=== PATIENT | female | born 1935 | race Caucasian/White ===

== ENCOUNTER 2017-10-17 06:53 | Observation (INO) | payer OTHER ==
[~2017-10-17] VITALS: Ht 154.9 cm; Wt 54.4 kg
[2017-10-17 07:23] LABS: ABSOLUTE BASOPHIL COUNT 0 /CUMM (0.0-0.2); ABSOLUTE EOSINOPHIL COUNT 0 /CUMM (0.0-0.7); ABSOLUTE GRANULOCYTE CT 6.3 /CUMM (1.4-6.5); ABSOLUTE LYMPH COUNT 1.4 /CUMM (1.2-3.4); ABSOLUTE MONOCYTE COUNT 0.7 /CUMM (0.10-0.60); BASOPHIL % 0.4 % (0.0-2.0); EOSINOPHIL % 0.5 % (0-5); GRANULOCYTE % 74.7 % (42.2-75.2); HEMATOCRIT 41.1 % (37-47); MEAN CORPUSCULAR HGB 28.8 PG (27.0-31.0); MEAN CORPUSCULAR HGB CONC 33.5 G/DL (33.0-37.0); MEAN CORPUSCULAR VOLUME 86.1 FL (81.0-99.0); MEAN PLATELET VOLUME 7.9 FL (7.4-10.4); PLATELET COUNT 275 /CUMM (130-400); RBC DISTRIBUTION WIDTH 13.4 % (11.5-14.5); RED BLOOD CELL CT 4.77 /CUMM (4.20-5.40); WHITE BLOOD CELL COUNT 8.4 /CUMM (4.8-10.8)
--- NOTE | 2017-10-17 07:25 | ED GENERAL ADULT ---
History of Present Illness General Chief Complaint: Chest Pain Stated Complaint: CP AND FLANK PAIN Source: patient Exam Limitations: no limitations Vital Signs & Intake/Output Vital Signs & Intake/Output Vital Signs Date Time Temp Pulse Resp B/P B/P Pulse O2 O2 Flow FiO2 Mean Ox Delivery Rate 10/17 1154 97.0 80 146/66 10/17 1120 97.0 84 20 145/70 94 10/17 0951 97.2 90 18 143/65 96 Room Air 10/17 0847 100 146/57 10/17 0806 97.0 103 20 131/61 96 Room Air 10/17 0719 97 Room Air Room Air 10/17 0703 92 20 182/81 100 Room Air Allergies Coded Allergies: No Known Allergies (10/17/17) Triage Note: PER PT MID ABD PAIN INTO BACK 'STRAIGHT THROUGH' TO BACK, X 1 WEEK, NOT ASSOC WITH EATING NO NVD NO SWEATING JUST IN PIT OF STOMACH Triage Nurses Notes Reviewed? yes Onset: Abrupt Duration: day(s): Timing: recent history HPI: 10/17/17 8:17 AM Patient was signed out to me by Dr. Leonard at 7 AM. She is an 82-year-old female who presents to the emergency department for epigastric discomfort and heart fluttering over the past week. She denies difficulty breathing. The onset of the symptoms was abrupt, the duration has been the past week, the severity is significant; as her symptoms required her to come to the emergency department for care. Her heart on palpation is irregularly irregular. Her initial EKG shows sinus rhythm, motion artifact. She denies any past medical history related to her heart. Past History Travel History Traveled to [place] past 21 day No Medical History Any Pertinent Medical History? see below for history Neurological: NONE EENT: NONE Cardiovascular: NONE Respiratory: NONE Gastrointestinal: BLOATING Hepatic: NONE Renal: NONE Musculoskeletal: NONE Psychiatric: NONE Endocrine: NONE Pneumonia Vaccine: 10/24/05 Surgical History Surgical History: non-contributory Psychosocial History Who do you live with Spouse Services at Home None What is your primary language [place] Tobacco Use: Never used Family History Hx Contributory? No Review of Systems Review of Systems Constitutional: Denies: fever. EENTM: Reports: no symptoms. Respiratory: Denies: short of breath. Cardiovascular: Reports: see HPI. GI: Reports: no symptoms. Genitourinary: Reports: no symptoms. Musculoskeletal: Reports: no symptoms. Skin: Reports: no symptoms. Neurological/Psychological: Reports: no symptoms. Hematologic/Endocrine: Reports: no symptoms. Immunologic/Allergic: Reports: no symptoms. Physical Exam Physical Exam General Appearance: alert, awake, anxious, moderate distress Head: atraumatic, normal appearance Eyes: Bilateral: normal appearance, PERRL, EOMI. Ears, Nose, Throat: normal pharynx, normal ENT inspection Neck: normal inspection, supple Respiratory: normal breath sounds, chest non-tender, no respiratory distress Cardiovascular: irregularly irregular Peripheral Pulses: 4+ radial (R), 4+ radial (L) Gastrointestinal: soft, non-tender Back: normal range of motion Extremities: pedal edema Neurologic/Psych: no motor/sensory deficits, awake, alert, oriented x 3 Skin: intact, normal color, warm/dry Core Measures ACS in differential dx? Yes No ASA d/t GIVEN CVA/TIA Diagnosis: No Sepsis Present: No Sepsis Focused Exam Completed? No Progress Differential Diagnoses I considered the following diagnoses in my evaluation of the patient: [Atrial fibrillation, ventricular ectopy, acute coronary syndrome, congestive heart failure] Plan of Care: Orders Procedure Date/time Status Heart Healthy Diet 10/17 D Active Patient Data 10/17 1345 Active ED Holding Orders 10/17 1317 Active Admit to inpatient 10/17 1317 Active Vital Signs 10/17 1317 Active Code Status 10/17 1317 Active TROPONIN LEVEL 10/17 1003 Complete EKG 10/17 1003 Active URINALYSIS 10/17 0846 Complete EKG 10/17 0823 Active TROPONIN LEVEL 10/17 0700 Complete PARTIAL THROMBOPLASTIN TIME 10/17 0700 Complete PROTHROMBIN TIME 10/17 0700 Complete LIPASE 10/17 0700 Complete HEPATIC FUNCTION PANEL 10/17 0700 Complete D-DIMER 10/17 0700 Complete CBC WITHOUT DIFFERENTIAL 10/17 07 Complete BASIC METABOLIC PANEL 10/17 0700 Complete AMYLASE 10/17 0700 Complete EKG 10/17 0654 Active Laboratory Tests 10/17/17 1003: Troponin I < 0.01 10/17/17 0847: Urine Color STRAW, Urine Clarity CLEAR, Urine pH 7.0, Ur Specific [place] 1.010, Urine Protein NEG, Urine Ketones NEG, Urine Nitrite NEG, Urine Bilirubin NEG, Urine Urobilinogen 0.2, Ur Leukocyte Esterase NEG, Ur Microscopic EXAM NOT REQUIRED, Urine Hemoglobin NEG, Urine Glucose NEG 10/17/17 0710: Anion Gap 12, Estimated GFR > 60, BUN/Creatinine Ratio 30.0 H, Glucose 107 H, Calcium 10.6 H, Total Bilirubin 0.5, Direct Bilirubin 0.4, AST 22, ALT 25, Alkaline Phosphatase 146 H, Troponin I < 0.01, Total Protein 7.9, Albumin 4.4, Amylase 79, Lipase 164, PT 11.1, INR 1.06, APTT 32, D-Dimer High Sensitivty 205, CBC w Diff NO MAN DIFF REQ, RBC 4.77, MCV 86.1, MCH 28.8, RDW 13.4, MPV 7.9, Gran % 74.7, Lymphocytes % 16.1 L, Monocytes % 8.3, Eosinophils % 0.5, Basophils % 0.4, Absolute Granulocytes 6.3, Absolute Lymphocytes 1.4, Absolute Monocytes 0.7 H, Absolute Eosinophils 0, Absolute Basophils 0, PUBS MCHC 33.5 Initial ED EKG: NSR Departure Departure Disposition: STILL A PATIENT Condition: Stable Clinical Impression Primary Impression: Palpitations Secondary Impressions: Acute electrocardiogram changes, Dyspnea Referrals: Yayo PEGUERO,Heath Robison (PCP/Family) Departure Forms: Customer Survey General Discharge Information Comments 10/17/17 11 AM The patient has not had any symptoms in the emergency department. No further palpitations. She did have some occasional PVCs on the monitor. EKG reveals normal sinus rhythm with nonspecific T-wave abnormality. I discussed the patient's plan of care with Dr. Arshad. He is reviewing the repeat EKG. The patient was seen and evaluated by this Dr. Arshad in the Emergency Department. She does have EKG changes to her second cardiogram and also had complained of some epigastric discomfort. She is therefore being admitted to the hospital for chest pain and EKG changes. Admission Note Spoke With: Pavithra PEGUERO PHD,Sergio Marin Documentation of Exam: Documentation of any treatments & extenuating circumstances including Concerns Regarding Discharge (functional status, medication knowledge or non-compliance, living conditions, etc.) that warrant an admission rather than observation: [The patient needs admission for serial troponins, echocardiogram, telemetry monitoring, likely inpatient stress testing] Critical Care Note Critical Care Note Critical Care Time: 30-74 min
[2017-10-17 07:33] LABS: PT 11.1 SEC (9.4-12.5); PTT 32 SEC (25-37)
--- NOTE | 2017-10-17 07:59 | RADIOLOGY REPORT ---
EXAMINATION: XR PORTABLE CHEST CLINICAL INFORMATION: Chest pain, postoperative patient COMPARISON: Chest radiograph from 05/15/2010 TECHNIQUE: Portable frontal view of the chest was obtained. FINDINGS: The cardiac silhouette is not enlarged. There is aortic atherosclerosis and mild tortuosity of the descending thoracic aorta. The lungs are well expanded and clear. Normal pulmonary vascularity. No pleural effusion or pneumothorax. Osseous structures appear intact. IMPRESSION: No evidence of acute pulmonary disease.
--- NOTE | 2017-10-17 13:16 | Cons- Cardiology ---
See Addendum General Information and HPI Consulting Request Date of Consult: 10/17/17 Requested By: ER History of Present Illness: Jenn is an 82 year old female with history of hypertension who has noted recurrent episodes of mild to moderate lower midsternal chest discomfort over the past two weeks. In additon, she has noted a flip-flop feeling in her chest without any associated lightheadedness for about the same period of time. Today, this patient had a similar discomfort although more intense and with radiation toward her back. She denies any exertional component to this discomfort but admits to being very inactive. Walking more that the distance to her mailbox will elicit shortness of breath. There is no change in her symptoms with eating or changes in position. She denies any associated nausea, vomiting or diaphoresis. In the ER the patient was noted to have multiple unifocal PVC's. She has two ECG's with the second showing a flattening of her T waves. Allergies/Medications Allergies: Coded Allergies: No Known Allergies (10/17/17) Review of Systems Review of Systems: A review of systems is unremarkable. Past History Travel History Traveled to [place] past 21 day No Medical History Neurological: NONE EENT: NONE Cardiovascular: hypertension Respiratory: NONE Gastrointestinal: BLOATING Hepatic: NONE Renal: NONE Musculoskeletal: NONE Psychiatric: NONE Endocrine: NONE Surgical History Surgical History: appendectomy, hysterectomy, foot surgery, lumbar and cervical spine surgery twice for each Family History Family History Reviewed? No premature coronary artery disease. Psychosocial History Services at Home: None Smoking Status: Former Smoker (Quit in her 50's) ETOH Use: denies use Exam & Diagnostic Data Vital Signs and I&O Vital Signs Date Time Temp Pulse Resp B/P B/P Pulse O2 O2 Flow FiO2 Mean Ox Delivery Rate 10/17 1154 97.0 80 146/66 10/17 1120 97.0 84 20 145/70 94 10/17 0951 97.2 90 18 143/65 96 Room Air 10/17 0847 100 146/57 10/17 0806 97.0 103 20 131/61 96 Room Air 10/17 0719 97 Room Air Room Air 10/17 0703 92 20 182/81 100 Room Air Intake & Output 10/17 1600 10/17 0800 10/17 0000 10/16 1600 10/16 0800 10/16 0000 Intake Total Output Total Balance Patient 120 lb Weight Physical Exam: General: WD/WN female in NAD; alert and oriented x 3 HEENT: NC/ AT, PERRL, EOMI Neck: no JVD, no carotid bruit Heart: RRR with 2/6 systolic murmur at the RUSB Lungs: clear bilaterally ABdomen: soft, NT, +ve bowel sounds Extremities: no edema Diagnostic Data EKG Results sinus rhythm with flattened T waves in leads V1-V6 Assessment/Plan Assessment/Plan * This patient has a history of hypertension, remote tobacco abuse and advanced age. Over the past two weeks this patient has noted recurrent episodes of chest discomfort. These episodes have not abated but rather have increase in intensity with a more severe episode today radiating toward her back that prompted her ER visit. She also has palpitations likely related to PVC's. These may be due to hypokalemia but myocardial ischemia cannot be excluded at this point in time. * Recommend; monitoring on telemetry for 24 hours with a plan for a stress echocardiogram and transthoracic echocardiogram. Follow three sets of cardiac enzymes. Begin aspirin 324mg daily, Plavix 75mg daily. Will have a low threshold for beginning IV heparin and NTG paste if recurrent chest pain. Begin Metoprolol at 25mg BID. Begin a statin, i.e. Atorvastatsin 20mg daily. * Replete potassium to 4.0. Consult Acknowledgment - Thank you for your consult request.
--- NOTE | 2017-10-17 14:52 | History & Physical ---
General Information and HPI MD Statement: I have seen and personally examined TEO NICHOLAS and documented this H&P. The patient is a 82 year old F who presented with a patient stated chief complaint of [atypical chest pain]. Source of Information: patient, old records Exam Limitations: no limitations History of Present Illness: 82-year-old woman with past medical history significant for hypertension, obesity presented at the emergency room complaining of 2 weeks of feeling funny in her chest accompanied with chest. Patient reports episodes of feeling funny/ fluttering in her heart chest, accompanied with deep pressing chest pain radiates to her back, resting, nonreproducible and usually triggers by emotional stress and anxiety, pain happens on average 1-2 per week. Over the stretch of past 2 weeks patient has not noticed any progression or regression of her symptoms in terms of qulity and quantity; 5 or 6 out of 10; took anti-acid without any relief of her symptoms. She denies accompanied symptoms of nausea, vomiting, feeling sweaty, clammy, lightheadedness, dizziness, palpitation, shortness of breath. In the emergency department initial sets of troponin and EKG were negative; repeat troponins came back negative but there were some concerning changes in the EKG. She lives with her , and not very physically active. Allergies/Medications Allergies: Coded Allergies: No Known Allergies (10/17/17) Compliance With Home Meds: GOOD Past History Travel History Traveled to [place] past 21 day No Medical History Neurological: NONE EENT: NONE Cardiovascular: hypertension Respiratory: NONE Gastrointestinal: BLOATING Hepatic: NONE Renal: NONE Musculoskeletal: NONE Psychiatric: NONE Endocrine: NONE Pneumonia Vaccine: 10/24/05 Surgical History Surgical History: appendectomy, hysterectomy, foot surgery lumbar and cervical spine surgery twice for each Past Family/Social History Family History Relations & Conditions if any Relation not specified for: *No pertinent family history Psychosocial History Services at Home: None Smoking Status: Former Smoker (Quit in her 50's) ETOH Use: denies use Functional Ability ADLs Independent: dressing, eating, toileting, bathing. Ambulation: independent IADLs Independent: shopping, housework, finances, food prep, telephone, transportation , medication admin. Employment History Employment Retired Review of Systems Review of Systems Constitutional: Reports: see HPI. Cardiovascular: Reports: see HPI, chest pain. Denies: edema, orthopena, palpitations, peripheral edema, syncope. Respiratory: Reports: no symptoms. GI: Reports: no symptoms. Genitourinary: Reports: no symptoms. Musculoskeletal: Reports: no symptoms. All Other Systems: Reviewed and Negative Exam & Diagnostic Data Last 24 Hrs of Vital Signs/I&O Vital Signs Date Time Temp Pulse Resp B/P B/P Pulse O2 O2 Flow FiO2 Mean Ox Delivery Rate 10/17 1613 98.3 68 20 120/60 95 10/17 1408 98.0 84 20 149/66 10/17 1354 98.0 84 20 149/66 94 Room Air 10/17 1154 97.0 80 146/66 10/17 1120 97.0 84 20 145/70 94 10/17 0951 97.2 90 18 143/65 96 Room Air 10/17 0847 100 146/57 10/17 0806 97.0 103 20 131/61 96 Room Air 10/17 0719 97 Room Air Room Air 10/17 0703 92 20 182/81 100 Room Air Intake & Output 10/17 1600 10/17 0800 10/17 0000 Intake Total 200 Output Total 100 Balance 100 Intake, Oral 200 Output, Urine 100 Patient 120 lb 120 lb Weight Weight Reported by Patient Measurement Method Physical Exam General Appearance Alert, Oriented X3, Cooperative Skin No Rashes, No Breakdown, No Significant Lesion HEENT PERRLA, EOMI Cardiovascular Normal S1, Normal S2, No Murmurs Lungs Clear to Auscultation, Normal Air Movement Abdomen Soft, No Tenderness, No Hepatospenomegaly Extremities No Edema Last 24 Hrs of Labs/Kamari: Laboratory Tests 10/17/17 1003: Troponin I < 0.01 10/17/17 0847: Urine Color STRAW, Urine Clarity CLEAR, Urine pH 7.0, Ur Specific [place] 1.010, Urine Protein NEG, Urine Ketones NEG, Urine Nitrite NEG, Urine Bilirubin NEG, Urine Urobilinogen 0.2, Ur Leukocyte Esterase NEG, Ur Microscopic EXAM NOT REQUIRED, Urine Hemoglobin NEG, Urine Glucose NEG 10/17/17 0710: Anion Gap 12, Estimated GFR > 60, BUN/Creatinine Ratio 30.0 H, Glucose 107 H, Calcium 10.6 H, Total Bilirubin 0.5, Direct Bilirubin 0.4, AST 22, ALT 25, Alkaline Phosphatase 146 H, Troponin I < 0.01, Total Protein 7.9, Albumin 4.4, Amylase 79, Lipase 164, PT 11.1, INR 1.06, APTT 32, D-Dimer High Sensitivty 205, CBC w Diff NO MAN DIFF REQ, RBC 4.77, MCV 86.1, MCH 28.8, RDW 13.4, MPV 7.9, Gran % 74.7, Lymphocytes % 16.1 L, Monocytes % 8.3, Eosinophils % 0.5, Basophils % 0.4, Absolute Granulocytes 6.3, Absolute Lymphocytes 1.4, Absolute Monocytes 0.7 H, Absolute Eosinophils 0, Absolute Basophils 0, PUBS MCHC 33.5 Diagnostic Data EKG Results sinus rhythm with flattened T waves in leads V1-V6 Assessment/Plan Assessment: 82-year-old , obese, former smoker woman with past medical history of hypertension presented with atypical chest pain and EKG changes while she was in the emergency department which was not accompanied by elevation in cardiac enzymes. Pertinent data Troponin: Less than 0.01 x2 sets initial EKG normal sinus rate and rhythm no acute ST-T segment change Consecutive EKG showed: Normal sinus rate and rhythm; normal axis, Poor R-wave progression; flattening of T-wave in lead 2 and new T-wave inversion in precordial leads V2 V3 compared to initial EKG. VISH score: 4 correlated with 20% mortality As Ranked By This Provider Problem List: 1. Acute electrocardiogram changes Assessment/Plan Acute changes in EKG with elevated VISH score. Elderly woman with past medical history of obesity hypertension and former smoker. Acute coronary syndrome needs to be ruled out. * Admitted to telemetry as an observation for continuous heart monitoring * Transthoracic echocardiogram * stress echo tomorrow * Ordered this third set of troponin and EKG at 4 PM * Low threshold for transfer to ICU and is started patient on IV heparin * Started patient on loading dose of aspirin 325 and Plavix 75 mg * Atorvastatin 40 mg by mouth daily * Nitrates patch 0.4 daily * Sublingual nitroglycerin for chest pain every 5 minutes 3 doses maximal * Morphine 1 mg every 4-6 hours for chest pain * Metoprolol 25 mg by mouth twice a day * For now holds her own antihypertensive medication triamterene/HCTZ (37/525 2 tabs in the a.m.) * 0.5 mg Ativan as needed for anxiety Housekeeping orders DVT prophylaxis Proper appearing pathway Core Measures/Misc (07/10) Acute Coronary Syndrome ACS Diagnosis: No Congestive Heart Failure Congestive Heart Failure Diagnosis No Cerebrovascular Accident CVA/TIA Diagnosis: No VTE (View Protocol) VTE Risk Factors Acute Medical Illness No Mechanical VTE Prophylaxis d/t N/A MechProphylax Ordered No VTE Pharm Prophylaxis d/t NA PharmProphylax ordered Sepsis (View protocol) Sepsis Present: No Resident Review Statement Resident Statement: examined this patient, discussed with property management intern, agreed with property management intern, discussed with family, reviewed EMR data (avail), discussed with nursing , discussed with case mgmt, reviewed images, amended to note
[2017-10-17 16:13] VITALS: BP 120/60
[2017-10-17 22:33] VITALS: BP 120/70
[2017-10-18 06:52] VITALS: BP 110/62
--- NOTE | 2017-10-18 07:18 | PN- Housestaff ---
Subjective Follow-up For: EKG changes Complaints: no complaints Tele-Events Since Last Visit: No events Subjective: Patient was visited and examined today. No complains. She slept comfortable. VSS. Review of Systems Constitutional: Reports: see HPI. Cardiovascular: Reports: see HPI. Denies: chest pain, edema, orthopena, palpitations, peripheral edema, syncope. Respiratory: Reports: no symptoms. Gastrointestinal: Reports: no symptoms. Musculoskeletal: Reports: no symptoms. Objective Last 24 Hrs of Vital Signs/I&O Vital Signs Date Time Temp Pulse Resp B/P B/P Pulse O2 O2 Flow FiO2 Mean Ox Delivery Rate 10/18 0652 97.8 66 20 110/62 95 Room Air 10/17 2233 98.4 70 20 120/70 95 10/17 2115 74 102/52 10/17 1613 98.3 68 20 120/60 95 10/17 1408 98.0 84 20 149/66 10/17 1354 98.0 84 20 149/66 94 Room Air 10/17 1154 97.0 80 146/66 10/17 1120 97.0 84 20 145/70 94 10/17 0951 97.2 90 18 143/65 96 Room Air Physical Exam General Appearance: Alert, Oriented X3, Cooperative, No Acute Distress Skin: No Rashes, No Breakdown, No Significant Lesion Cardiovascular: Normal S1, Normal S2, No Murmurs Lungs: Clear to Auscultation Abdomen: Soft Neurological: Normal Speech, Strength at 5/5 X4 Ext Extremities: No Edema Vascular: Normal Pulses Current Medications: Current Medications Sig/Christine Start time Last Medication Dose Route Stop Time Status Admin Acetaminophen 650 MG Q6P PRN 10/17 1500 AC 10/18 PO 0854 Aspirin 0 .STK-MED ONE 10/17 1408 DC PO Aspirin 325 MG ONCE ONE 10/17 1400 DC 10/17 PO 10/17 1401 1408 Atorvastatin Calcium 40 MG 1700 10/17 1700 AC 10/17 PO 1747 Clopidogrel Bisulfate 0 .STK-MED ONE 10/17 1408 DC PO Clopidogrel Bisulfate 75 MG DAILY 10/17 1352 AC 10/18 PO 0854 Enoxaparin Sodium 40 MG DAILY 10/17 1449 AC 10/18 SC 0855 Hydrocodone Bitart/ 1 TAB Q6P PRN 10/17 1500 AC Acetaminophen PO Lorazepam 0.5 MG ONCE ONE 10/17 1445 DC 10/17 PO 10/17 1446 1502 Metoprolol Tartrate 0 .STK-MED ONE 10/17 1408 DC PO Metoprolol Tartrate 25 MG BID 10/17 1353 AC 10/17 PO 2115 Morphine Sulfate 2 MG Q4-6 PRN PRN 10/17 1400 AC IV Nitroglycerin 0.4 MG Q 5 MINUTES X 3 DO.. 10/17 1400 AC SL Nitroglycerin 0.4 MG DAILY 10/17 1353 AC 10/17 TOP 1415 Potassium Chloride 40 MEQ ONCE ONE 10/17 1700 DC 10/17 PO 10/17 1701 1736 Last 24 Hrs of Lab/Kamari Results Last 24 Hrs of Labs/Mics: Laboratory Tests 10/17/17 1655: Troponin I < 0.01 10/17/17 1003: Troponin I < 0.01 Assessment/Plan Assessment: 82 years old was admitted for acute changes in EKG with elevated VISH score; Elderly woman with past medical history of obesity hypertension and former smoker. Acute coronary syndrome needs to be ruled out. * Admitted to telemetry as an observation on 10/17 for continuous heart monitoring * Transthoracic echocardiogram * stress echo tomorrow * ASA 81 mg po daily and Plavix 75 mg * Atorvastatin 40 mg by mouth daily * Nitrates patch 0.4 daily * Sublingual nitroglycerin for chest pain every 5 minutes 3 doses maximal * Morphine 1 mg every 4-6 hours for chest pain * Metoprolol 25 mg by mouth twice a day- hold for stress echo test * For now holds her own antihypertensive medication triamterene/HCTZ (37/525 2 tabs in the a.m.) * 0.5 mg Ativan as needed for anxiety Housekeeping DVT prophylaxis FC Problem List: 1. Palpitations Pain Ratin Pain Location: back Pain Goal: Remain pain free Pain Plan: per pain pathway Tomorrow's Labs & Rationales: NA Consulting Request: Consulting Specialty: Cardiology Discharge Plan Discharge Disposition: home
[2017-10-18 14:27] VITALS: BP 108/54
--- NOTE | 2017-10-18 17:04 | PN- Cardiology ---
Subjective Subjective: * Patient reports an episode of chest discomfort today after eating. * sinus rhythm * normal troponins Objective Vital Signs and I&Os Vital Signs Date Time Temp Pulse Resp B/P B/P Pulse O2 O2 Flow FiO2 Mean Ox Delivery Rate 10/18 1427 97.6 73 18 108/54 96 Room Air 10/18 0652 97.8 66 20 110/62 95 Room Air 10/17 2233 98.4 70 20 120/70 95 10/17 2115 74 102/52 Intake & Output 10/18 1600 10/18 0800 10/18 0000 10/17 1600 10/17 0800 10/17 0000 Intake Total 200 Output Total 400 100 Balance -400 100 Intake, Oral 200 Output, Urine 400 100 Patient 120 lb 120 lb Weight Weight Reported by Patient Measurement Method Physical Exam: General: WD/WN female in NAD; alert and oriented x 3 Neck: no JVD, no carotid bruit Heart: RRR with 2/6 systolic murmur at the RUSB Lungs: clear bilaterally ABdomen: soft, NT, +ve bowel sounds Extremities: no edema Assessment/Plan Assessment/Plan * This patient ruled out for an NH by cardiac enzymes. She continues to have some discomfort however. The discomfort today was noticed after she ate lunch and we will monitor for any recurrent discomfort with eating. * Obtain an echocardiogram. * Begin aspirin 324mg daily as recommended yesterday. Begin Protonix 40mg daily. * A stress test is pending for tomorrow. Continue telemetry? Yes
[2017-10-18 22:54] VITALS: BP 110/52
[2017-10-19 06:56] VITALS: BP 126/64
--- NOTE | 2017-10-19 07:20 | PN- Housestaff ---
Subjective Follow-up For: abnormal ekg Complaints: had a transient fluttering yesterday; Tele-Events Since Last Visit: No incident overnight Subjective: patient was visited and examined today VSS No Tele incident overnight Review of Systems Constitutional: Reports: see HPI. Cardiovascular: Reports: palpitations. Denies: chest pain, edema, orthopena, peripheral edema, syncope. Respiratory: Reports: no symptoms. Gastrointestinal: Reports: no symptoms. Genitourinary: Reports: no symptoms. Objective Last 24 Hrs of Vital Signs/I&O Vital Signs Date Time Temp Pulse Resp B/P B/P Pulse O2 O2 Flow FiO2 Mean Ox Delivery Rate 10/19 0656 97.7 67 18 126/64 96 Room Air 10/18 2254 97.7 66 16 110/52 96 Room Air 10/18 2126 73 108/54 10/18 1427 97.6 73 18 10854 96 Room Air Intake & Output 10/19 1600 10/19 0800 10/19 0000 Intake Total 50 100 Output Total Balance 50 100 Intake, Oral 50 100 Patient 120 lb Weight Physical Exam General Appearance: Alert, Oriented X3, Cooperative Skin: No Rashes, No Breakdown, No Significant Lesion Neck: No JVD, No thryomegaly, +2 Carotid Pulse wo Bruit Lymphatic: Axillary nl, Cervical nl Cardiovascular: Normal S1, Normal S2, No Murmurs Lungs: Clear to Auscultation, Normal Air Movement Abdomen: Soft Current Medications: Current Medications Sig/Christine Start time Last Medication Dose Route Stop Time Status Admin Acetaminophen 650 MG .STK-MED ONE 10/18 0852 DC PO 10/18 0853 Acetaminophen 650 MG Q6P PRN 10/17 1500 AC 10/18 PO 0854 Aspirin 325 MG DAILY 10/18 1934 AC 10/18 PO 2127 Atorvastatin Calcium 40 MG 1700 10/17 1700 AC 10/18 PO 1541 Clopidogrel Bisulfate 75 MG DAILY 10/17 1352 AC 10/18 PO 0854 Dobutamine HCl 250 MG ONE ONE 10/19 1000 CAN Dextrose/Water 230 ML IV 10/19 1001 Enoxaparin Sodium 40 MG DAILY 10/17 1449 AC 10/18 SC 0855 Hydrocodone Bitart/ 1 TAB Q6P PRN 10/17 1500 AC Acetaminophen PO Melatonin 5 MG AT BEDTIME 10/19 0145 AC 10/19 PO 0139 Metoprolol Tartrate 25 MG BID 10/18 2200 DC 10/18 PO 10/19 0200 2126 Metoprolol Tartrate 25 MG BID 10/17 1353 DC 10/17 PO 2115 Morphine Sulfate 2 MG Q4-6 PRN PRN 10/17 1400 AC IV Nitroglycerin 0.4 MG Q 5 MINUTES X 3 DO.. 10/17 1400 AC SL Nitroglycerin 0.4 MG DAILY 10/17 1353 AC 10/18 TOP 0906 Pantoprazole Sodium 40 MG DAILY 10/18 1934 AC 10/18 IV 2126 Potassium Chloride 20 MEQ DAILY 10/18 1415 AC 10/18 PO 1428 Assessment/Plan Assessment: 82 years old was admitted for acute changes in EKG with elevated VISH score; Elderly woman with past medical history of obesity hypertension and former smoker. Acute coronary syndrome needs to be ruled out. * Obs tele for abnormal EKG and atypical chest pain * Transthoracic echocardiogram * stress echo tomorrow-treadmil * ASA 81 mg po daily and Plavix 75 mg * Atorvastatin 40 mg by mouth daily * Nitrates patch 0.4 daily * Sublingual nitroglycerin for chest pain every 5 minutes 3 doses maximal * Morphine 1 mg every 4-6 hours for chest pain * Metoprolol 25 mg by mouth twice a day- hold for stress echo test * For now holds her own antihypertensive medication triamterene/HCTZ (37/525 2 tabs in the a.m.) * 0.5 mg Ativan as needed for anxiety * metoprolol 25 mg po BID- hold for stress test Housekeeping DVT prophylaxis FC Problem List: 1. Acute electrocardiogram changes 2. Palpitations Pain Ratin Pain Location: none Pain Goal: Remain pain free Pain Plan: NA Tomorrow's Labs & Rationales: None Consulting Request: Consulting Specialty: Cardiology
--- NOTE | 2017-10-19 08:56 | Discharge Summary ---
Visit Information Visit Dates Admission Date: 10/17/17 Discharge Date: 10/19/17 Hospital Course Course Consulting Request: Consulting Specialty: Cardiology Allergies: Coded Allergies: No Known Allergies (10/17/17)
[2017-10-19 14:00] VITALS: BP 112/54
--- NOTE | 2017-10-19 15:08 | Patient Discharge Instructions ---
Discharge Instructions General Discharge Information You were seen/treated for: abnormal ekg You had these procedures: stress echocardiogram Watch for these problems: palpitation and chest pain Special Instructions: follow up with Dr. Arshad w/i one week Diet Continue normal diet: No Recommended Diet: Heart Healthy Activity Full Activity/No Limits: Yes Activity Self Limited: Yes Acute Coronary Syndrome Inclusion Criteria At DC or during hospital stay patient has or had the following: ACS DIAGNOSIS No Discharge Core Measures Meds if any: Prescribed or Continued at Discharge Meds if any: NOT Prescribed or Continued at Discharge Congestive Heart Failure Inclusion Criteria At DC or during hospital stay patient has or had the following: CHF DIAGNOSIS No Discharge Core Measures Meds if any: Prescribed or Continued at Discharge Meds if any: NOT Prescribed or Continued at Discharge Cerebrovascular accident Inclusion Criteria At DC or during hospital stay patient has or had the following: CVA/TIA Diagnosis No Discharge Core Measures Meds if any: Prescribed or Continued at Discharge Antithrombotic No Statin (required if LDL =>70) No Meds if any: NOT Prescribed or Continued at Discharge Venous thromboembolism Inclusion Criteria VTE Diagnosis No VTE Type NONE VTE Confirmed by (Test) NONE Discharge Core Measures - Per Current guidelines, there needs to be overlap - treatment for the first 5 days of Warfarin therapy. - If discharged on Warfarin prior to 5 days of - overlap therapy, the patient will need to be - assessed for post discharge needs including - *Post discharge parental anticoagulation - *Warfarin and/or parental anticoagulation education - *Follow up date to check INR post discharge At least 5 days overlap therapy as Inpatient No Meds if any: Prescribed or Continued at Discharge Warfarin No Note: Overlap Therapy is Warfarin and Anticoagulant Meds if any: NOT Prescribed or Continued at Discharge
[2017-10-19] MEDS ORDERED: ASPIRIN81 M4 PO (15:15)
[2017-10-19] MEDS ORDERED: ATORVASTATIN CA20 M1 PO ×2 (15:15→17:49)
[2017-10-19] MEDS ORDERED: LOPRESSOR50 M1 PO (15:15)
[2017-10-19] MEDS ORDERED: OMEPRAZOLE20 M3 PO (15:15)
--- NOTE | 2017-10-19 17:25 | ECHOCARDIOGRAM REPORT ---
TEO NICHOLAS Exam Date: 10/19/2017 10:09 Ordering Physician: Shana Fink MD Referring Physician: Sergio Arshad MD, PhD Technologist: Lois Calzada Room Number: [id number] Age: 82 : 1935 Gender: F Exam Location: [address] [place] [address] Ht (in): Wt (lb): BSA: Indication: ABNORMAL EKG Rhythm: Patient History: Cardiac Medications: Medications in past 24 hours: Contrast: Stress Results Protocol: Dick Total dose(mL): Exercise Duration (min:sec): METS: Resting HR: Resting BP: / Peak HR: Peak BP: / Max Predicted HR: 137 % Max Predicted HR Target HR: 116 Stress Summary: BP Response: Reason for Termination: Cardiac Symptoms: ECG Analysis Resting ECG: Stress ECG: Arrhythmia: FINDINGS Rest Imaging: The left ventricle appeared to be of normal size with normal wall motion and systolic thickening. Stress Imaging: The left ventricle appeared to be of normal size with normal wall motion and systolic thickening without evidence of systolic dilatation. CONCLUSIONS Impression: Normal rest and stress echocardiogram. Eduardo Santiago M.D. (Electronically Signed) Final Date: 19 October 2017 17:25 MEASUREMENTS (Male/Female) Normal Values
--- NOTE | 2017-10-19 17:29 | PN- Cardiology ---
Subjective Subjective: * No chest discomfort or shortness of breath. * sinus rhythm * stress test is negative for ischemia Objective Vital Signs and I&Os Vital Signs Date Time Temp Pulse Resp B/P B/P Pulse O2 O2 Flow FiO2 Mean Ox Delivery Rate 10/19 1400 97.7 70 20 112/54 95 10/19 0656 97.7 67 18 126/64 96 Room Air 10/18 2254 97.7 66 16 110/52 96 Room Air 10/18 2126 73 108/54 Intake & Output 10/19 1600 10/19 0800 10/19 0000 10/18 1600 10/18 0800 10/18 0000 Intake Total 50 100 Output Total 400 Balance 50 100 -400 Intake, Oral 50 100 Output, Urine 400 Patient 120 lb Weight Physical Exam: General: WD/WN female in NAD; alert and oriented x 3 Neck: no JVD, no carotid bruit Heart: RRR with 2/6 systolic murmur at the RUSB Lungs: clear bilaterally ABdomen: soft, NT, +ve bowel sounds Extremities: no edema Assessment/Plan Assessment/Plan * This patient ruled out for an [place] by cardiac enzymes. She is pain free on her current drug regimen. No chest pain while on the treadmill and her stress test is negative for ischemia. We will discharge this patient with a plan for office follow up in a week. * Discharge on aspirin 324mg daily. Protonix 40mg daily, atorvastatin and a NTG patch 0.4mg /hr for 12 hours daily and Metoprolol 12.5mg BID. Continue telemetry? No
[2017-10-19] MEDS ORDERED: PROTONIX40 M3 PO ×2 (17:42→17:50)
[2017-10-19] MEDS ORDERED: NITROGLYCERIN1 EACH PAT ×2 (17:42→17:49)
[2017-10-19] MEDS ORDERED: METOPROLOL SUCC25 M1 PO ×2 (17:42→17:49)
[2017-10-19] MEDS ORDERED: ASPIRIN325 M2 PO ×2 (17:42→17:50)
--- NOTE | 2017-10-20 09:20 | ECHOCARDIOGRAM REPORT ---
TEO NICHOLAS Age: 82 : 1935 Gender: F Exam Date: 10/19/2017 09:08 Exam Location: [address] Ht (in): 61 Wt (lb): 120 BSA: 1.54 BP: 126 / 64 Ordering Physician: Shana Fink MD Referring Physician: Sergio Arshad MD, PhD Technologist: Lois Calzada Room Number: [id number] Indications: CHEST PAIN Rhythm: Sinus Technical Quality: good FINDINGS Left Ventricle Normal left ventricular size, wall thickness and systolic function with no obvious regional wall motion abnormalities. Diastolic filling pressures are consistent with impaired left ventricular relaxation. The ejection fraction is visually estimated at 55%. Right Ventricle The right ventricle is normal in size and function. Right Atrium The right atrium is normal in size. Left Atrium The left atrium is normal in size. The interatrial septum is intact. Mitral Valve The mitral valve demonstrates mild posterior annular calcification with normal function. There is mild mitral regurgitation. Aortic Valve Structurally normal aortic valve without significant sclerosis or stenosis. There is trace to mild aortic regurgitation. Tricuspid Valve The tricuspid valve is normal in structure and function. There is mild tricuspid regurgitation. Pulmonary artery systolic pressure is mildly elevated to 38mmHg. Pulmonic Valve Structurally normal pulmonic valve. There is no pulmonic regurgitation. Pericardium Normal pericardium without effusion. No pleural effusion. Great Vessels Normal aortic root dimension. The aortic arch and great vessels are well seen and are normal. CONCLUSIONS 1. Normal EF of 55% with impaired LV relaxation. 2. Mild mitral regurgitation. 3. Mild tricuspid regurgitation. 4. Trace to mild aortic regurgitation. 5. Mildly increased pulmonary pressures. Sergio Arshad M.D. (Electronically Signed) Final Date: 20 October 2017 09:20 MEASUREMENTS (Male / Female) Normal Values 2D ECHO LV Diastolic Diameter PLAX 3.4 cm 4.2 - 5.9 / 3.9 - 5.3 cm LV Systolic Diameter PLAX 2.5 cm 2.1 - 4.0 cm LV Fractional Shortening PLAX 26.5 % 25 - 46 % LV Ejection Fraction 2D Teich 52.9 % IVS Diastolic Thickness 0.9 cm LVPW Diastolic Thickness 1.1 cm LV Relative Wall Thickness 0.6 RV Internal Dim ED PLAX 1.9 cm 1.9 - 3.8 cm LVOT Diameter 2.0 cm LA Volume 26.0 cm 18 - 58 / 22 - 52 cm Ascending Aorta Diameter 3.4 cm DOPPLER AV Peak Velocity 152.0 cm/s AV Peak Gradient 9.2 mmHg AV Mean Velocity 98.5 cm/s AV Mean Gradient 5.0 mmHg AV Velocity Time Integral 30.8 cm LVOT Peak Velocity 124.0 cm/s LVOT Peak Gradient 6.2 mmHg LVOT Mean Velocity 68.1 cm/s LVOT Mean Gradient 2.0 mmHg LVOT Velocity Time Integral 22.5 cm LVOT Stroke Volume 70.7 cm AV Area Cont Eq vti 2.3 cm AV Area Cont Eq pk 2.6 cm MV Peak Velocity 145.0 cm/s MV Peak Gradient 8.4 mmHg MV Mean Velocity 76.4 cm/s MV Mean Gradient 3.0 mmHg Mitral E Point Velocity 79.5 cm/s Mitral A Point Velocity 122.0 cm/s Mitral E to A Ratio 0.7 MV PHT Velocity 99.1 cm/s MV Deceleration [place] 350.0 cm/s MV Pressure Half Time 84.9 ms MV Area PHT 2.6 cm MV Deceleration Time 271.0 ms TR Peak Velocity 273.0 cm/s TR Peak Gradient 29.8 mmHg Right Atrial Pressure 10.0 mmHg Pulmonary Artery Systolic Pressu 39.8 mmHg Right Ventricular Systolic Press 39.8 mmHg PV Peak Velocity 102.0 cm/s PV Peak Gradient 4.2 mmHg PV Mean Velocity 59.2 cm/s PV Mean Gradient 2.0 mmHg PV Velocity Time Integral 18.5 cm LV E' Lateral Velocity 8.0 cm/s Mitral E to LV E' Lateral Ratio 9.9 LV E' Septal Velocity 5.5 cm/s Mitral E to LV E' Septal Ratio 14.4
== END 2017-10-19 18:49 ==
LOC: ERH 06:53 → 1NO 13:17 → ERHI 13:17 → 1NO 13:17 → ENRESERV 14:15 → ENTRNSPT 15:05 → CMPTRNSPT 15:32 → 1NO 15:42 → ENPENDDIS 10-19 18:36 → ENTRNSPT 10-19 18:39 → 1NO 10-19 18:49 → EDTRNSPTSTS 10-19 18:52 → EDTRNSPT 10-19 18:52 → CMPTRNSPT 10-19 18:54
PROVIDERS: Pediatrics
DX: R07.89 Other chest pain (principal); I10 Essential (primary) hypertension; E66.9 Obesity, unspecified; Z87.891 Personal history of nicotine dependence; Z79.82 Long term (current) use of aspirin; R00.2 Palpitations; Z79.899 Other long term (current) drug therapy
CPT/HCPCS: 1NSP; 6020; 36415; 81003; 93005; 93010; 93016; 93017; 93306; 93350-TC; 96372; 96374; 96376; G0378; J1250; J1650; J7060

== ENCOUNTER 2018-01-29 16:37 | Emergency (ER) | payer OTHER ==
[~2018-01-29] VITALS: Ht 154.9 cm; Wt 59.0 kg
[~2018-01-29 16:37] MED LIST: ASPIRIN325 M2 PO; ASPIRIN81 M4 PO; ATORVASTATIN CA20 M1 PO; LOPRESSOR50 M1 PO; METOPROLOL SUCC25 M1 PO; NITROGLYCERIN1 EACH PAT; OMEPRAZOLE20 M3 PO; PROTONIX40 M3 PO
[2018-01-29] MEDS ORDERED: TRIAMTERENE-HC1 EAC3 PO (16:51)
[2018-01-29 16:52] VITALS: BP 156/64
--- NOTE | 2018-01-29 17:40 | ED EAR COMPLAINT ---
History of Present Illness General Chief Complaint: General Adult Stated Complaint: "CAN'T HEAR" Source: patient, family Exam Limitations: no limitations Vital Signs & Intake/Output Vital Signs & Intake/Output Vital Signs Date Time Temp Pulse Resp B/P B/P Pulse O2 O2 Flow FiO2 Mean Ox Delivery Rate 01/29 1652 98.4 91 18 156/64 95 Room Air Allergies Coded Allergies: No Known Allergies (10/17/17) Reconcile Medications Aspirin (Aspirin*) 325 MG TABLET 1 TAB PO DAILY [facility] . Atorvastatin Calcium 20 MG TABLET 1 TAB PO DAILY [facility] . Metoprolol Succinate 25 MG TAB 0.5 TAB PO BID [facility] . Nitroglycerin (Nitroglycerin Patch) 0.4 MG/HOUR PATCH.TD24 1 PAT PAT DAILY CHEST PAIN Please wear one patch for 12 hours daily. Pantoprazole Sodium (Protonix) 40 MG TABLET.DR 1 TAB PO DAILY [facility] . Triamterene/Hydrochlorothiazid (Triamterene-Hctz 37.5-25 MG Cp) 37.5 MG-25 MG CAPSULE 1 CAP PO DAILY HTN (Reported) Triage Note: 82F REPORTS HEARING LOSS STARTING AT 1PM TODAY AFTER LUNCH. STATES IT SEEMS TO BE EQUAL LOSS TO BOTH EARS WITH ASSOCIATED ECHO, DENIES TINNITIS OR PAIN TO EARS. DENIES HX EAR SURGERIES. MED RECONCILLIATION COMPLETED IN TRIAGE. HAS NITRO PATCH TO LCW RECONCILLIATION COMPLETED IN TRIAGE. HAS NITRO PATCH TO LCW Triage Nurses Notes Reviewed? yes Onset: Abrupt Duration: constant Timing: single episode today Injury Environment: home HPI: Patient is an 82-year-old female with past medical history of hypertension hyperlipidemia anxiety and GERD who presents emergency room with family member for concerns of acute onset of bilateral muffled hearing sensation since 1300 today patient states that the muffled hearing is worse on the right compared to left. Patient denies any fever chills headache blurred vision visual acuity changes extremity weakness and slurred speech difficulty with speech, ear pain sore throat nasal congestion and is otherwise without complaints. (Chalino Shah) Past History Travel History Traveled to [place] past 21 day No Medical History Any Pertinent Medical History? 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 No (Chalino Shah) Review of Systems Review of Systems Constitutional: Reports: no symptoms. EENTM: Reports: see HPI. Denies: ear discharge, ear pain, ear redness. Respiratory: Reports: no symptoms. Cardiovascular: Reports: no symptoms. GI: Reports: no symptoms. Genitourinary: Reports: no symptoms. Musculoskeletal: Reports: no symptoms. Skin: Reports: no symptoms. Neurological/Psychological: Reports: no symptoms. Hematologic/Endocrine: Reports: no symptoms. Immunologic/Allergic: Reports: no symptoms. All Other Systems: Reviewed and Negative (Chalino Shah) Physical Exam Physical Exam General Appearance: no apparent distress, alert, comfortable Head: atraumatic Eyes: Bilateral: normal appearance, PERRL, EOMI. Ears: Bilateral: other (BILATERAL CERUMEN IMPACTION). Nose: normal inspection Mouth/Throat: normal mouth inspection Neck: normal inspection Cardiovascular/Respiratory: normal breath sounds, normal peripheral pulses, regular rate/rhythm Neurologic/Psych: no motor/sensory deficits Skin: intact, normal color (Chalino Shah) Progress Differential Diagnoses I considered the following diagnoses in my evaluation of the patient: [CVA TIA tympanic membrane rupture cerumen impaction and otitis media otitis externa labyrinthitis vertigo] Plan of Care: On examination patient has bilateral cerumen impaction. No concerns of neurovascular deficit I soaked bilateral ears with warm water and peroxide then using curettes significant cerumen was disimpacted patient had complete resolution of her muffled hearing sensation Upon discharge patient looks well no Ene stressed the tympanic membranes after reexamination were unremarkable Initial ED EKG: none (Chalino Shah) Departure Departure Disposition: HOME OR SELF CARE Condition: Stable Clinical Impression Primary Impression: Cerumen impaction Referrals: Yayo PEGUERO,Heath Robison (PCP/Family) Mary Alice PEGUERO,Mahesh Christensen Additional Instructions: As discussed begin using [id number] Debrox for your cerumen impaction, symptoms worsen return to emergency room if symptoms persist follow-up with ENT DR. GOETZ for further evaluation treatment Departure Forms: Customer Survey General Discharge Information (Kimber WHITE,Chalino) PA/HONING MACHINE OPERATOR PRODUCTION Co-Sign Statement Statement: ED Attending supervision documentation- [] I saw and evaluated the patient. I have also reviewed all the pertinent lab results and diagnostic results. I agree with the findings and the plan of care as documented in the PA's/HONING MACHINE OPERATOR PRODUCTION's documentation. [x] I have reviewed the ED Record and agree with the PA's/HONING MACHINE OPERATOR PRODUCTION's documentation. [] Additions or exceptions (if any) to the PAs/HONING MACHINE OPERATOR PRODUCTION's note and plan are summarized below: [] (Aisha PEGUERO,Anshul Mejias)
== END 2018-01-29 19:19 ==
LOC: ERH 16:37
DX: H61.21 Impacted cerumen, right ear (principal); H61.22 Impacted cerumen, left ear